=== PATIENT | female | born 1985 | race Two or more races ===

== ENCOUNTER 2024-03-16 11:30 | Emergency (ER) | payer SELFPAY ==
[~2024-03-16] VITALS: Ht 167.6 cm; Wt 65.9 kg
[2024-03-16 11:33] VITALS: BP 151/100; PULSE 88; RESP 18; TEMP 99.4
[2024-03-16] MEDS: KETOROLAC TROMETHAMINE 60 MG/2 ML VIAL IM ONE (12:15)
[2024-03-16] MEDS: METHOCARBAMOL 500 MG TABLET PO ONE (12:15)
[2024-03-16] MEDS ORDERED: IBUP-1492 PO (13:40)
[2024-03-16] MEDS ORDERED: METH-659 PO (13:41)
== END 2024-03-16 13:59 | disposition home or self-care (01) ==
LOC: EMS 11:30
DX: S29.012A Strain of muscle and tendon of back wall of thorax, initial encounter (principal); F17.210 Nicotine dependence, cigarettes, uncomplicated; Z98.890 Other specified postprocedural states; Z88.0 Allergy status to penicillin; Z88.5 Allergy status to narcotic agent; V49.88XA Car occupant (driver) (passenger) injured in other specified transport accidents, initial encounter; Y93.89 Activity, other specified; Y92.89 Other specified places as the place of occurrence of the external cause; Y99.8 Other external cause status
CPT/HCPCS: 99283; J1885

== ENCOUNTER 2024-04-12 18:32 | Emergency (ER) | payer BC ==
[~2024-04-12] VITALS: Ht 162.6 cm; Wt 70.5 kg
[~2024-04-12 18:32] MED LIST: IBUP-1492 PO; METH-659 PO
[2024-04-12 18:37] VITALS: BP 153/95; PULSE 70; RESP 18; TEMP 98.6
[2024-04-12] MEDS ORDERED: KETOROLAC TROMETHAMINE 60 MG/2 ML VIAL IM ONE (20:11)
[2024-04-12] MEDS ORDERED: CLIN-142 PO (20:12)
[2024-04-12] MEDS: CLINDAMYCIN HCL 150 MG CAPSULE PO ONE (20:14)
[2024-04-12] MEDS: KETOROLAC TROMETHAMINE 60 MG/2 ML VIAL IM ONE (20:14)
== END 2024-04-12 20:22 | disposition home or self-care (01) ==
LOC: EMS 18:33
DX: K02.9 Dental caries, unspecified (principal); K08.89 Other specified disorders of teeth and supporting structures; K85.90 Acute pancreatitis without necrosis or infection, unspecified; F17.210 Nicotine dependence, cigarettes, uncomplicated; Z88.0 Allergy status to penicillin; Z88.5 Allergy status to narcotic agent
CPT/HCPCS: 99283; 96372; J1885

== ENCOUNTER 2024-07-13 09:04 | Emergency (ER) | payer SELFPAY ==
[~2024-07-13] VITALS: Ht 162.6 cm; Wt 68.2 kg
[~2024-07-13 09:04] MED LIST changes: +CLIN-142 PO; -IBUP-1492 PO; -METH-659 PO
[2024-07-13 09:09] VITALS: BP 155/102; PULSE 92; RESP 18; TEMP 99.4; O2SAT 99
[2024-07-13] MEDS ORDERED: IBUP-1492 PO (09:19)
[2024-07-13] MEDS ORDERED: CLIN-26 PO (09:19)
[2024-07-13] MEDS: CLINDAMYCIN HCL 150 MG CAPSULE PO ONE (09:23)
[2024-07-13] MEDS: KETOROLAC TROMETHAMINE 30 MG/ML VIAL IM ONE (09:23)
[2024-07-13] MEDS: ACETAMINOPHEN 500 MG TABLET PO ONE (09:23)
== END 2024-07-13 09:33 | disposition home or self-care (01) ==
LOC: EMS 09:04
DX: K08.89 Other specified disorders of teeth and supporting structures (principal); F17.210 Nicotine dependence, cigarettes, uncomplicated; Z88.0 Allergy status to penicillin; Z88.5 Allergy status to narcotic agent
CPT/HCPCS: 99283; 96372; J1885

== ENCOUNTER 2024-12-31 14:28 | Emergency (ER) | payer OTHER ==
[~2024-12-31] VITALS: Ht 162.6 cm; Wt 75.0 kg
[~2024-12-31 14:28] MED LIST changes: +CLIN-26 PO; +IBUP-1492 PO
[2024-12-31] MEDS ORDERED: ONDA-104 PO (14:57)
[2024-12-31] MEDS ORDERED: ACET-66 PO (14:57)
[2024-12-31] MEDS ORDERED: GUAIFDM PO (14:57)
[2024-12-31] MEDS ORDERED: IBUP-1554 PO (14:57)
[2024-12-31 14:59] VITALS: BP 145/84; PULSE 88; RESP 19; TEMP 98.4; O2SAT 96
[2024-12-31 15:13] LABS: COVID AG,FIA SOURCE NASAL SWAB
[2024-12-31 15:37] LABS: INFLUENZA TYPE A NEGATIVE FOR TYPE A (NEGATIVE); INFLUENZA TYPE B NEGATIVE FOR TYPE B (NEGATIVE)
[2024-12-31 15:38] LABS: SARS-COV2 (COVID) ANTIGEN,FIA Negative (Negative)
== END 2024-12-31 16:09 | disposition home or self-care (01) ==
LOC: EMS 14:28
DX: J06.9 Acute upper respiratory infection, unspecified (principal); R11.10 Vomiting, unspecified; F17.210 Nicotine dependence, cigarettes, uncomplicated; Z88.0 Allergy status to penicillin; Z88.5 Allergy status to narcotic agent; Z20.822 Contact with and (suspected) exposure to COVID-19
CPT/HCPCS: 87804; 99283